=== PATIENT | male | born 2000 | race African-American/Black ===

== ENCOUNTER 2020-02-24 19:39 | Emergency (ER) | payer MEDICAID, OTHER ==
[~2020-02-24] VITALS: Ht 185.4 cm; Wt 81.6 kg
[2020-02-24 20:03] VITALS: BP 117/70
== END 2020-02-24 20:16 | disposition home or self-care (01) ==
LOC: ER 19:39
DX: K04.7 Periapical abscess without sinus (principal); F17.210 Nicotine dependence, cigarettes, uncomplicated

== ENCOUNTER 2020-02-27 23:25 | Emergency (ER) | payer MEDICAID ==
[~2020-02-27] VITALS: Ht 185.4 cm; Wt 77.1 kg
[2020-02-27 23:58] VITALS: BP 114/60
== END 2020-02-28 04:14 | disposition left against medical advice (07) ==
LOC: ER 23:25
DX: K08.89 Other specified disorders of teeth and supporting structures (principal); Z53.21 Procedure and treatment not carried out due to patient leaving prior to being seen by health care provider